=== PATIENT | male | born 1950 | race Caucasian/White ===

== ENCOUNTER 2021-07-20 12:30 | Observation (INO) ==
[2021-07-20] MEDS ORDERED: NS 0.9% 1000 ml BAG 1,000 ML IV ONE (12:39)
[2021-07-20 12:53] LABS: Hematocrit 45 % (42-52); Hemoglobin 15.4 g/dL (14.0-18.0); Mean Corpuscular HGB Conc 35 g/dL (31-36); Mean Corpuscular Hemoglobin 31 pg (27-31); Mean Corpuscular Volume 91 fL (80-94); Mean Platelet Volume 7.9 fL (7.4-10.4); Platelet Count 302 10^3/uL (150-450); Red Blood Count 4.89 10^6 /uL (4.18-5.48); Red Cell Distribution Width 17 % (10-15); White Blood Count 10.6 10^3/uL (3.5-10.8)
[2021-07-20 12:54] LABS: ABS Basophils 0.1 10^3/ul (0-0.2); ABS Lymphocytes 2.8 10^3/ul (1.0-4.8); ABS Monocytes 0.8 10^3/ul (0-0.8); ABS Neutrophils 6.9 10^3/ul (1.5-7.7); Eosinophil % 0.5 %; Lymphocyte % 26.5 %; Nucleated Red Blood Cells % 0.1
[2021-07-20 13:05] LABS: Activated Partial Thrombo Time 26.6 seconds (26.0-38.0); INR 0.98 (0.86-1.15)
[2021-07-20 13:07] LABS: Chloride 103 mmol/L (101-111); Sodium 138 mmol/L (135-145)
[2021-07-20 13:12] LABS: Troponin I 0.01 ng/mL (<0.03)
[2021-07-20 14:16] LABS: Albumin 4.4 g/dL (3.2-5.2); Anion Gap 11 mmol/L (2-11); CO2 Carbon Dioxide 24 mmol/L (22-32); Calcium 10.6 mg/dL (8.6-10.3)
[2021-07-20 14:22] LABS: ALT 25 U/L (7-52); AST 17 U/L (13-39); Albumin/Globulin Ratio 1.4 (1-3); Alkaline Phosphatase 80 U/L (35-149); Blood Urea Nitrogen 21 mg/dL (6-24); Cholesterol 119 mg/dL; Globulin 3.1 g/dL (2-4); Glucose 125 mg/dL (70-100); LDL Cholesterol 47 mg/dL; Total Protein 7.5 g/dL (6.4-8.9); Triglycerides 142 mg/dL
[2021-07-20] MEDS ORDERED: Iohexol 350 (CONTRAST) 500 ML MDV IV ONE (14:52)
[2021-07-20] MEDS ORDERED: Enoxaparin 40 MG/0.4 ML SYR SUBCUT SCH (16:00)
[2021-07-20 18:22] LABS: TSH Ultra Thyroid Stim Horm 1.86 mcIU/mL (0.34-5.60)
[2021-07-20 18:29] LABS: Rapid COVID-19 Molecular Undetected (Undetected)
[2021-07-20 18:33] LABS: Vitamin B12 > 1450 pg/mL (180-914)
[2021-07-20] MEDS: Mometasone/Formoter 200/5 MDI INH SCH (23:03)
[2021-07-21 06:35] LABS: Hematocrit 40 % (42-52); Hemoglobin 13.5 g/dL (14.0-18.0); Mean Corpuscular HGB Conc 34 g/dL (31-36); Mean Corpuscular Hemoglobin 31 pg (27-31); Mean Corpuscular Volume 92 fL (80-94); Mean Platelet Volume 7.8 fL (7.4-10.4); Platelet Count 251 10^3/uL (150-450); Red Blood Count 4.38 10^6 /uL (4.18-5.48); Red Cell Distribution Width 17 % (10-15); White Blood Count 7.9 10^3/uL (3.5-10.8)
[2021-07-21 06:51] LABS: Calcium 9.4 mg/dL (8.6-10.3); Potassium 3.9 mmol/L (3.5-5.0)
[2021-07-21] MEDS: Mometasone/Formoter 200/5 MDI INH SCH (07:38)
[2021-07-21] MEDS ORDERED: Perflutren Lipid Microsphere 3 ML VIAL ONE (10:48)
[2021-07-21 16:14] VITALS: BP 139/82
== END 2021-07-21 16:40 | disposition home or self-care (01) ==
LOC: ED 12:30 → SUATTDRO 20:14 → INTOOBSV 20:14 → MEDTELE 20:14
PROVIDERS: ADMIT Internal Medicine; ATTEND Internal Medicine

== ENCOUNTER 2023-03-02 22:08 | Observation (INO) ==
[2023-03-02 23:00] LABS: ABS Basophils 0.1 10^3/uL (0.0-0.1); ABS Lymphocytes 2.2 10^3/uL (1.0-4.8); ABS Monocytes 0.8 10^3/uL (0.0-1.1); ABS Nucleated RBC 0.03 10^3/ul; Eosinophil % 0.5 %; Hematocrit 41.1 % (38-53); Hemoglobin 14.2 g/dL (13.2-16.3); Lymphocyte % 24.7 %; Mean Corpuscular Hemoglobin 30.7 pg (27-33); Mean Corpuscular Hgb Conc 34.5 g/dL (31-36); Mean Corpuscular Volume 89.1 fL (80-97); Mean Platelet Volume 8.2 fL (7.5-11.2); Nucleated Red Blood Cells % 0.3 /100 WBC (0.0-0.4); Platelet Count 241 10^3/uL (150-450); Red Blood Count 4.61 10^6/uL (4.06-5.63); Red Cell Distribution Width 17.3 % (12-17); White Blood Count 9.1 10^3/uL (3.6-10.2)
[2023-03-02 23:09] LABS: Activated Partial Thrombo Time 26.9 seconds (26.0-38.0); INR 0.96 (0.88-1.18)
[2023-03-02 23:46] LABS: Albumin 4.1 g/dL (3.2-5.2); Albumin/Globulin Ratio 1.8 (1-3); Calcium 9.6 mg/dL (8.6-10.3); Creatinine, Serum 1.06 mg/dL (0.67-1.17); Globulin 2.3 g/dL (2-4); HDL Cholesterol 39.4 mg/dL; Total Protein 6.4 g/dL (6.4-8.9); eGFR CKD-EPI 74.1 (>60)
[2023-03-03] MEDS ORDERED: Enoxaparin 40 MG/0.4 ML SYR SUBCUT SCH (01:00)
[2023-03-03] MEDS ORDERED: Iohexol 350 (CONTRAST) 500 ML MDV IV ONE (01:08)
[2023-03-03 01:14] LABS: Urine Appearance Clear; Urine Bilirubin Negative (Negative); Urine Blood Negative (Negative); Urine Color Yellow; Urine Glucose Negative (Negative); Urine Ketones Negative (Negative); Urine Nitrite Negative (Negative); Urine Protein 2+(100 mg/dL) (Negative); Urine Specific Gravity 1.024 (1.002-1.030); Urine Urobilinogen Negative (Negative)
[2023-03-03 01:17] LABS: Urine Amorphous Crystals Present (Absent); Urine Bacteria Absent (Absent); Urine Red Blood Cell Absent (Absent); Urine White Blood Cell Absent (Absent)
[2023-03-03] MEDS ORDERED: Mometasone/Formoter 200/5 MDI INH SCH (07:00)
[2023-03-03 10:36] VITALS: BP 160/86
== END 2023-03-03 10:34 | disposition home or self-care (01) ==
LOC: ED 22:08 → EDHOLD 22:08
PROVIDERS: ADMIT Hospitalist; ATTEND Internal Medicine

== ENCOUNTER 2023-05-23 11:55 | Observation (INO) ==
[2023-05-23] MEDS ORDERED: Iodixanol (CONTRAST) 320 MG/ML 100 ML SDV IV ONE (12:12)
[2023-05-23 12:17] LABS: Hematocrit 42.9 % (38-53); Hemoglobin 14.7 g/dL (13.2-16.3); Mean Corpuscular Hgb Conc 34.3 g/dL (31-36); Mean Corpuscular Volume 90.4 fL (80-97); Mean Platelet Volume 7.7 fL (7.5-11.2); Platelet Count 296 10^3/uL (150-450); Red Blood Count 4.74 10^6/uL (4.06-5.63); Red Cell Distribution Width 17.7 % (12-17); White Blood Count 10.6 10^3/uL (3.6-10.2)
[2023-05-23 12:37] LABS: Activated Partial Thrombo Time 27.9 seconds (26.0-38.0); INR 1.01 (0.88-1.18)
[2023-05-23 12:51] LABS: Albumin 4.3 g/dL (3.2-5.2); Albumin/Globulin Ratio 1.4 (1-3); Calcium 9.9 mg/dL (8.6-10.3); Creatinine, Serum 1.04 mg/dL (0.67-1.17); Direct Bilirubin 0.1 mg/dL (0.03-0.18); HDL Cholesterol 40.6 mg/dL; Indirect Bilirubin 1.4 mg/dL (0.3-1.0); Potassium 4.1 mmol/L (3.5-5.0); Total Bilirubin 1.5 mg/dL (0.2-1.0); Total Protein 7.3 g/dL (6.4-8.9); eGFR CKD-EPI 75.8 (>60)
[2023-05-23 13:17] LABS: ABS Basophils 0.1 10^3/uL (0.0-0.1); ABS Eosinophils 0.1 10^3/uL (0.0-0.5); ABS Lymphocytes 1.9 10^3/uL (1.0-4.8); ABS Monocytes 1.1 10^3/uL (0.0-1.1); ABS Neutrophils 7.5 10^3/uL (1.5-7.6); ABS Nucleated RBC 0.02 10^3/ul; Eosinophil % 0.6 %; Lymphocyte % 17.6 %; Nucleated Red Blood Cells % 0.2 /100 WBC (0.0-0.4)
[2023-05-23] MEDS: Enoxaparin 40 MG/0.4 ML SYR SUBCUT SCH ×2 (18:06→21:54)
[2023-05-24 05:52] LABS: ABS Basophils 0.1 10^3/uL (0.0-0.1); ABS Eosinophils 0.1 10^3/uL (0.0-0.5); ABS Lymphocytes 2.6 10^3/uL (1.0-4.8); ABS Monocytes 0.7 10^3/uL (0.0-1.1); ABS Neutrophils 4.7 10^3/uL (1.5-7.6); ABS Nucleated RBC 0.01 10^3/ul; Eosinophil % 1.4 %; Hematocrit 39.3 % (38-53); Hemoglobin 13.6 g/dL (13.2-16.3); Lymphocyte % 32.2 %; Mean Corpuscular Hgb Conc 34.6 g/dL (31-36); Mean Corpuscular Volume 89.7 fL (80-97); Mean Platelet Volume 7.8 fL (7.5-11.2); Nucleated Red Blood Cells % 0.1 /100 WBC (0.0-0.4); Platelet Count 251 10^3/uL (150-450); Red Blood Count 4.38 10^6/uL (4.06-5.63); Red Cell Distribution Width 17.2 % (12-17); White Blood Count 8.2 10^3/uL (3.6-10.2)
[2023-05-24 07:34] LABS: Calcium 8.9 mg/dL (8.6-10.3); Creatinine, Serum 0.95 mg/dL (0.67-1.17); Magnesium 1.9 mg/dL (1.9-2.7); Potassium 3.8 mmol/L (3.5-5.0); eGFR CKD-EPI 84.5 (>60)
[2023-05-24 12:51] VITALS: BP 124/65
== END 2023-05-24 12:25 | disposition home or self-care (01) ==
LOC: ED 11:55 → EDHOLD 11:55 → SUATTDRO 13:53 → MEDTELE 15:54
PROVIDERS: ADMIT Internal Medicine; ATTEND Student in an Organized Health Care Education/Training Program